=== PATIENT | female | born 1935 | race Caucasian/White ===

== ENCOUNTER 2020-08-15 05:25 | Inpatient (IN) | payer OTHER ==
[~2020-08-15] VITALS: Ht 152.4 cm; Wt 43.1 kg
[2020-08-15 05:25] VITALS: BP 118/57
[2020-08-15] MEDS ORDERED: NACL 0.9% 500 ML IV ONE (05:30)
[2020-08-15] MEDS ORDERED: METO50TE2 PO (05:47)
[2020-08-15] MEDS ORDERED: HYDR-133 PO (05:47)
[2020-08-15] MEDS ORDERED: ACET-2619 PO (05:47)
[2020-08-15] MEDS ORDERED: DOCU-299 PO (05:47)
[2020-08-15] MEDS ORDERED: MULT-2112 PO (05:47)
[2020-08-15] MEDS ORDERED: ALEN70TA74 PO (05:47)
[2020-08-15] MEDS ORDERED: [UNRECOGNIZED DRUG - CODE] PO (05:47)
[2020-08-15] MEDS ORDERED: PYRI-218 PO (05:47)
[2020-08-15] MEDS ORDERED: LACT10SO1 PO (05:47)
[2020-08-15 06:09] LABS: BASOPHILS % (AUTO) 0.4 % (0.0-2.0); EOSINOPHILS % (AUTO) 0.2 % (0.0-4.0); HEMATOCRIT 34.3 % (36-48); HEMOGLOBIN 11.7 g/dL (12.0-16.0); LYMPHOCYTES # (AUTO) 0.4 K/uL (2.5-16.5); LYMPHOCYTES % (AUTO) 3.8 % (20.5-51.1); MEAN CORPUSCULAR HEMOGLOBIN 29 pg (27-31); MEAN CORPUSCULAR HGB CONC 34 g/dL (33-37); MEAN CORPUSCULAR VOLUME 85.8 fL (80-94); MONOCYTES # (AUTO) 0.5 K/uL (0.8-1.0); MONOCYTES % (AUTO) 4.5 % (1.7-9.3); NEUTROPHILS # (AUTO) 9.2 K/uL (1.8-7.7); NEUTROPHILS % (AUTO) 91.1 % (42.2-75.2); PLATELET COUNT (AUTO) 311 K/uL (140-450); RED BLOOD CELL COUNT(AUTO) 3.99 MIL/uL (4.20-5.40); RED CELL DISTRIBUTION WIDTH 14.7 % (11.6-13.7); WHITE BLOOD COUNT (AUTO) 10.1 K/uL (4.8-10.8)
[2020-08-15 06:10] LABS: APPEARANCE,URINE CLOUDY (CLEAR); BILIRUBIN,URINE NEGATIVE (NEGATIVE); BLOOD, URINE 2+ (NEGATIVE); COLOR,URINE YELLOW (YELLOW); LEUKOCYTE ESTERASE ,URINE 1+ (NEGATIVE); UGLUCOSE NEGATIVE (NEGATIVE)
[2020-08-15 06:17] LABS: RBC,URINE 0-5 /HPF (0-5); WBC,URINE 0-5 /HPF (0-5)
[2020-08-15 06:18] LABS: NITRITE, URINE POSITIVE (NEGATIVE)
[2020-08-15] MEDS ORDERED: LEVOFLOXACIN 500 MG/D5W PREMIX 100 ML IV ONE (06:20)
[2020-08-15] MEDS ORDERED: AZITHROMYCIN 1,000 MG in DEXTROSE 5% 500 ML IV ONE (06:20)
[2020-08-15 06:30] LABS: PROTHROMBIN TIME 10.9 secs (10.8-13.4)
[2020-08-15 06:31] LABS: ALBUMIN 2.8 g/dL (3.4-5.0); ANION GAP 9.2 (8-16); ASPARTATE AMINOTRANSFERASE 77 U/L (15-37); CHLORIDE 94 mmol/L (98-107); CREATININE 1.1 mg/dL (0.6-1.3); GLUCOSE 229 mg/dL (74-106); SODIUM SERUM 142 mmol/L (136-145); TOTAL BILIRUBIN 2.1 mg/dL (0.0-1.0); UREA NITROGEN, BLOOD 22 mg/dL (7-18)
[2020-08-15] MEDS ORDERED: AZITHROMYCIN 500 MG INJ VIAL IV ONE (06:33)
[2020-08-15 06:42] LABS: POTASSIUM 1.2 mmol/L (3.5-5.1)
[2020-08-15] MEDS ORDERED: POTASSIUM CHL 40 MEQ/ D5-1/2NS 1,000 ML IV ONE (06:45)
[2020-08-15] MEDS ORDERED: ZOLPIDEM 5 MG TAB PO PRN (08:05)
[2020-08-15] MEDS ORDERED: guaiFENesin DM 200/20 MG-10 ML 10 ML UDC PO PRN (08:05)
[2020-08-15] MEDS ORDERED: DOCUSATE SODIUM 100 MG GELCAP PO PRN (08:05)
[2020-08-15] MEDS ORDERED: ONDANSETRON 4 MG/2 ML VIAL IM/IVP PRN (08:05)
[2020-08-15] MEDS ORDERED: ACETAMINOPHEN 325 MG TAB PO PRN (08:05)
[2020-08-15] MEDS ORDERED: HYDROcodone/APAP 7.5/325 MG 1 TAB PO PRN (08:05)
[2020-08-15] MEDS ORDERED: KCL 20 MEQ/WATER INJ PREMIX 100 ML IV SCH (08:29)
[2020-08-15] MEDS: METOPROLOL SUCCINATE 50 MG TABER PO SCH (09:00)
[2020-08-15] MEDS: PANTOPRAZOLE 40 MG TABEC PO SCH (09:00)
[2020-08-15 09:04] LABS: BARBITURATE, URINE NEGATIVE ng/ml (NEG <=200); BENZODIAZEPINE, URINE NEGATIVE ng/mL (NEG <=200); CANNABINOID, URINE NEGATIVE ng/mL (NEG <=50); COCAINE, URINE NEGATIVE ng/mL (NEG <=300); OPIATE, URINE NEGATIVE ng/mL (NEG <=2000); PHENCYCLIDINE SCREEN,URINE NEGATIVE ng/mL (NEG <=25)
[2020-08-15 09:05] LABS: FREE T4 (FREE THYROXINE) 1.56 ng/dL (0.76-1.46); MAGNESIUM 1.2 mg/dL (1.8-2.4); THYROID STIMULATING HORMONE 1.81 uIU/mL (0.34-3.74)
[2020-08-15] MEDS ORDERED: METOPROLOL 50 MG TAB ONE (09:23)
[2020-08-15] MEDS: lisinopriL 5 MG TAB PO SCH (09:56)
[2020-08-15 10:30] VITALS: BP 101/56
[2020-08-15 12:47] LABS: ANION GAP 8.6 (8-16); CHLORIDE 94 mmol/L (98-107); CREATININE 1.3 mg/dL (0.6-1.3); GLUCOSE 260 mg/dL (74-106); SODIUM SERUM 141 mmol/L (136-145); UREA NITROGEN, BLOOD 21 mg/dL (7-18)
[2020-08-15 13:02] LABS: POTASSIUM 1.6 mmol/L (3.5-5.1)
[2020-08-15] MEDS ORDERED: POTASSIUM CHL 40 MEQ/ D5-1/2NS 1,000 ML IV SCH (14:05)
[2020-08-15] MEDS ORDERED: SPIRONOLACTONE 25 MG TAB PO SCH (14:20)
[2020-08-15] MEDS: SPIRONOLACTONE 50 MG TAB PO SCH ×2 (14:53→20:53)
[2020-08-15] MEDS: POTASSIUM CHLORIDE 40 MEQ, LIDOCAINE MPF 1% 25 MG in NACL 0.9% 250 ML IV PRN (14:53)
[2020-08-15] MEDS: POTASSIUM CHLORIDE 10 MEQ TABER PO SCH ×2 (15:20→20:52)
[2020-08-15 16:00] VITALS: BP 113/57
[2020-08-15] MEDS ORDERED: POTASSIUM CHLORIDE 10 MEQ TABER PO SCH (17:00)
[2020-08-15] MEDS ORDERED: NACL 0.9% 1,000 ML IV SCH (17:00)
[2020-08-15] MEDS: ATORVASTATIN 20 MG TAB PO SCH (18:00)
[2020-08-15] MEDS: MAG SULF 2000 MG/WATER PREMIX 50 ML IV SCH ×2 (18:10→20:55)
[2020-08-15] MEDS ORDERED: MAG SULF 2000 MG/WATER PREMIX 50 ML IV SCH (18:30)
[2020-08-15 20:00] VITALS: BP 120/61
[2020-08-15] MEDS: FUROSEMIDE 20 MG TAB PO SCH (20:53)
[2020-08-15] MEDS: SENNA 8.6 MG TAB PO SCH (20:53)
[2020-08-15] MEDS ORDERED: CRUSHER, PILL MC ONE (20:57)
[2020-08-16] VITALS: BP 106/50
[2020-08-16 04:00] VITALS: BP 134/57
[2020-08-16 07:17] LABS: BASOPHILS % (AUTO) 0.2 % (0.0-2.0); EOSINOPHILS % (AUTO) 0.6 % (0.0-4.0); HEMATOCRIT 29.5 % (36-48); HEMOGLOBIN 10.3 g/dL (12.0-16.0); LYMPHOCYTES # (AUTO) 1.1 K/uL (2.5-16.5); LYMPHOCYTES % (AUTO) 15.2 % (20.5-51.1); MEAN CORPUSCULAR HEMOGLOBIN 30 pg (27-31); MEAN CORPUSCULAR HGB CONC 35 g/dL (33-37); MEAN CORPUSCULAR VOLUME 85.6 fL (80-94); MONOCYTES # (AUTO) 0.6 K/uL (0.8-1.0); MONOCYTES % (AUTO) 8.3 % (1.7-9.3); NEUTROPHILS # (AUTO) 5.4 K/uL (1.8-7.7); NEUTROPHILS % (AUTO) 75.7 % (42.2-75.2); PLATELET COUNT (AUTO) 247 K/uL (140-450); RED BLOOD CELL COUNT(AUTO) 3.45 MIL/uL (4.20-5.40); RED CELL DISTRIBUTION WIDTH 15.3 % (11.6-13.7); WHITE BLOOD COUNT (AUTO) 7.2 K/uL (4.8-10.8)
[2020-08-16 07:39] LABS: ANION GAP 7.1 (8-16); CHLORIDE 102 mmol/L (98-107); CREATININE 0.9 mg/dL (0.6-1.3); GLUCOSE 140 mg/dL (74-106); SODIUM SERUM 149 mmol/L (136-145); UREA NITROGEN, BLOOD 17 mg/dL (7-18)
[2020-08-16 08:00] VITALS: BP 126/60
[2020-08-16 08:07] LABS: T4 (THYROXINE) 10.9 ug/dL (4.5-12.0)
[2020-08-16 08:18] LABS: POTASSIUM 1.7 mmol/L (3.5-5.1)
[2020-08-16 08:19] LABS: CARBON DIOXIDE 41.6 mmol/L (21-32)
[2020-08-16] MEDS: POTASSIUM CHLORIDE 10 MEQ TABER PO SCH ×3 (09:00→17:00)
[2020-08-16] MEDS: SENNA 8.6 MG TAB PO SCH ×2 (09:00→21:00)
[2020-08-16] MEDS: FUROSEMIDE 20 MG TAB PO SCH (09:00)
[2020-08-16] MEDS: METOPROLOL SUCCINATE 50 MG TABER PO SCH (09:00)
[2020-08-16] MEDS: lisinopriL 5 MG TAB PO SCH (09:00)
[2020-08-16] MEDS: PANTOPRAZOLE 40 MG TABEC PO SCH (09:00)
[2020-08-16] MEDS: SPIRONOLACTONE 50 MG TAB PO SCH (09:00)
[2020-08-16] MEDS: POTASSIUM CHLORIDE 40 MEQ, LIDOCAINE MPF 1% 25 MG in NACL 0.9% 250 ML IV PRN (09:14)
[2020-08-16 09:23] LABS: MAGNESIUM 2.6 mg/dL (1.8-2.4); PHOSPHORUS 2.2 mg/dL (2.5-4.9)
[2020-08-16 12:00] VITALS: BP 139/90
[2020-08-16] MEDS ORDERED: POTASSIUM CHL 20 MEQ/NACL 0.9% 1,000 ML IV SCH (13:10)
[2020-08-16] MEDS: POTASSIUM CHL 40 MEQ/ D5-1/2NS 1,000 ML IV SCH (15:45)
[2020-08-16 16:00] VITALS: BP 158/72
[2020-08-16] MEDS ORDERED: POTASSIUM CHLORIDE 40 MEQ, LIDOCAINE MPF 1% 25 MG in NACL 0.9% 250 ML IV SCH (16:00)
[2020-08-16] MEDS: ATORVASTATIN 20 MG TAB PO SCH (17:00)
[2020-08-16 20:00] VITALS: BP 102/69
[2020-08-17] VITALS: BP 108/57
[2020-08-17 04:00] VITALS: BP 108/75
[2020-08-17] MEDS: POTASSIUM CHL 40 MEQ/ D5-1/2NS 1,000 ML IV SCH ×2 (06:03→13:36)
[2020-08-17 08:00] VITALS: BP 133/99
[2020-08-17] MEDS: SENNA 8.6 MG TAB PO SCH ×4 (09:00→21:50)
[2020-08-17] MEDS: METOPROLOL SUCCINATE 50 MG TABER PO SCH ×2 (09:00→09:55)
[2020-08-17] MEDS: lisinopriL 5 MG TAB PO SCH ×2 (09:00→09:55)
[2020-08-17] MEDS ORDERED: PANTOPRAZOLE 40 MG INJ VIAL IVP SCH (09:36)
[2020-08-17 12:00] VITALS: BP 152/84
[2020-08-17 14:41] LABS: BASOPHILS % (AUTO) 0.1 % (0.0-2.0); EOSINOPHILS % (AUTO) 0.1 % (0.0-4.0); HEMATOCRIT 31.7 % (36-48); HEMOGLOBIN 10.6 g/dL (12.0-16.0); LYMPHOCYTES # (AUTO) 0.5 K/uL (2.5-16.5); LYMPHOCYTES % (AUTO) 3.3 % (20.5-51.1); MEAN CORPUSCULAR HEMOGLOBIN 29 pg (27-31); MEAN CORPUSCULAR HGB CONC 33 g/dL (33-37); MEAN CORPUSCULAR VOLUME 87.7 fL (80-94); MONOCYTES # (AUTO) 1.4 K/uL (0.8-1.0); MONOCYTES % (AUTO) 8.6 % (1.7-9.3); NEUTROPHILS # (AUTO) 14.6 K/uL (1.8-7.7); NEUTROPHILS % (AUTO) 87.9 % (42.2-75.2); PLATELET COUNT (AUTO) 367 K/uL (140-450); RED BLOOD CELL COUNT(AUTO) 3.62 MIL/uL (4.20-5.40); RED CELL DISTRIBUTION WIDTH 15.9 % (11.6-13.7); WHITE BLOOD COUNT (AUTO) 16.6 K/uL (4.8-10.8)
[2020-08-17 15:03] LABS: ANION GAP 10.5 (8-16); CARBON DIOXIDE 36.7 mmol/L (21-32); CHLORIDE 104 mmol/L (98-107); CREATININE 0.9 mg/dL (0.6-1.3); GLUCOSE 248 mg/dL (74-106); SODIUM SERUM 149 mmol/L (136-145); UREA NITROGEN, BLOOD 22 mg/dL (7-18)
[2020-08-17 15:06] LABS: MAGNESIUM 2.2 mg/dL (1.8-2.4); PHOSPHORUS 2.8 mg/dL (2.5-4.9)
[2020-08-17 15:11] LABS: POTASSIUM 2.2 mmol/L (3.5-5.1)
[2020-08-17 16:07] VITALS: BP 131/85
[2020-08-17] MEDS ORDERED: POTASSIUM CHLORIDE 40 MEQ, LIDOCAINE MPF 1% 25 MG in NACL 0.9% 250 ML IV SCH (16:30)
[2020-08-17] MEDS: ATORVASTATIN 20 MG TAB PO SCH (17:00)
[2020-08-17 20:00] VITALS: BP 112/68
[2020-08-18] VITALS: BP 123/57
[2020-08-18 04:00] VITALS: BP 129/75
[2020-08-18 06:52] LABS: HEMATOCRIT 32.7 % (36-48); HEMOGLOBIN 10.8 g/dL (12.0-16.0); LYMPHOCYTES % (AUTO) 5.9 % (20.5-51.1); MEAN CORPUSCULAR HEMOGLOBIN 29 pg (27-31); MEAN CORPUSCULAR HGB CONC 33 g/dL (33-37); MEAN CORPUSCULAR VOLUME 88.7 fL (80-94); MONOCYTES # (AUTO) 1.2 K/uL (0.8-1.0); MONOCYTES % (AUTO) 7.4 % (1.7-9.3); NEUTROPHILS # (AUTO) 14.6 K/uL (1.8-7.7); NEUTROPHILS % (AUTO) 86.7 % (42.2-75.2); PLATELET COUNT (AUTO) 303 K/uL (140-450); RED BLOOD CELL COUNT(AUTO) 3.68 MIL/uL (4.20-5.40); RED CELL DISTRIBUTION WIDTH 15.9 % (11.6-13.7); WHITE BLOOD COUNT (AUTO) 16.8 K/uL (4.8-10.8)
[2020-08-18 07:08] LABS: MAGNESIUM 2.3 mg/dL (1.8-2.4); PHOSPHORUS 3.1 mg/dL (2.5-4.9)
[2020-08-18 07:47] LABS: ALBUMIN 2.4 g/dL (3.4-5.0); ANION GAP 13.5 (8-16); ASPARTATE AMINOTRANSFERASE 383 U/L (15-37); CARBON DIOXIDE 32.9 mmol/L (21-32); CHLORIDE 104 mmol/L (98-107); CREATININE 1.2 mg/dL (0.6-1.3); GLUCOSE 282 mg/dL (74-106); POTASSIUM 3.4 mmol/L (3.5-5.1); SODIUM SERUM 147 mmol/L (136-145); TOTAL BILIRUBIN 0.6 mg/dL (0.0-1.0); UREA NITROGEN, BLOOD 29 mg/dL (7-18)
[2020-08-18 08:00] VITALS: BP 138/80
[2020-08-18] MEDS: lisinopriL 5 MG TAB PO SCH ×2 (09:00→10:42)
[2020-08-18] MEDS: METOPROLOL SUCCINATE 50 MG TABER PO SCH ×2 (09:00→10:42)
[2020-08-18] MEDS: SENNA 8.6 MG TAB PO SCH ×3 (09:00→21:00)
[2020-08-18] MEDS: PANTOPRAZOLE 40 MG INJ VIAL IVP SCH (10:41)
[2020-08-18] MEDS: POTASSIUM CHL 40 MEQ/ D5-1/2NS 1,000 ML IV SCH (10:43)
[2020-08-18 12:00] VITALS: BP 135/82
[2020-08-18] MEDS: POTASSIUM CHLORIDE 40 MEQ, LIDOCAINE MPF 1% 25 MG in NACL 0.9% 250 ML IV PRN (15:12)
[2020-08-18 16:00] VITALS: BP 139/85
[2020-08-18] MEDS: ATORVASTATIN 20 MG TAB PO SCH (17:00)
[2020-08-18 20:00] VITALS: BP 145/84
[2020-08-19] VITALS: BP 160/93
[2020-08-19] MEDS: POTASSIUM CHL 40 MEQ/ D5-1/2NS 1,000 ML IV SCH (02:40)
[2020-08-19 04:00] VITALS: BP 128/73
[2020-08-19 07:29] LABS: MAGNESIUM 2.3 mg/dL (1.8-2.4); PHOSPHORUS 2.9 mg/dL (2.5-4.9)
[2020-08-19 07:30] LABS: ALBUMIN 2.4 g/dL (3.4-5.0); ANION GAP 12.4 (8-16); ASPARTATE AMINOTRANSFERASE 215 U/L (15-37); CARBON DIOXIDE 32.5 mmol/L (21-32); CHLORIDE 104 mmol/L (98-107); CREATININE 1.1 mg/dL (0.6-1.3); GLUCOSE 231 mg/dL (74-106); POTASSIUM 4.9 mmol/L (3.5-5.1); SODIUM SERUM 144 mmol/L (136-145); TOTAL BILIRUBIN 0.5 mg/dL (0.0-1.0); UREA NITROGEN, BLOOD 32 mg/dL (7-18)
[2020-08-19 07:32] LABS: BASOPHILS % (AUTO) 0.2 % (0.0-2.0); EOSINOPHILS % (AUTO) 0.1 % (0.0-4.0); HEMATOCRIT 32.7 % (36-48); HEMOGLOBIN 10.7 g/dL (12.0-16.0); LYMPHOCYTES # (AUTO) 0.9 K/uL (2.5-16.5); LYMPHOCYTES % (AUTO) 5.7 % (20.5-51.1); MEAN CORPUSCULAR HEMOGLOBIN 29 pg (27-31); MEAN CORPUSCULAR HGB CONC 33 g/dL (33-37); MEAN CORPUSCULAR VOLUME 89.4 fL (80-94); MONOCYTES # (AUTO) 0.9 K/uL (0.8-1.0); MONOCYTES % (AUTO) 5.3 % (1.7-9.3); NEUTROPHILS # (AUTO) 14.5 K/uL (1.8-7.7); NEUTROPHILS % (AUTO) 88.7 % (42.2-75.2); PLATELET COUNT (AUTO) 294 K/uL (140-450); RED BLOOD CELL COUNT(AUTO) 3.66 MIL/uL (4.20-5.40); RED CELL DISTRIBUTION WIDTH 15.9 % (11.6-13.7); WHITE BLOOD COUNT (AUTO) 16.4 K/uL (4.8-10.8)
[2020-08-19 08:00] VITALS: BP 149/84
[2020-08-19] MEDS: SENNA 8.6 MG TAB PO SCH (09:00)
[2020-08-19] MEDS: PANTOPRAZOLE 40 MG INJ VIAL IVP SCH (09:00)
[2020-08-19] MEDS: METOPROLOL SUCCINATE 50 MG TABER PO SCH (09:00)
[2020-08-19] MEDS: lisinopriL 5 MG TAB PO SCH (09:00)
[2020-08-19] MEDS ORDERED: FUROSEMIDE 20 MG/2 ML VIAL IVP SCH (11:15)
[2020-08-19 12:00] VITALS: BP 152/90
[2020-08-19 14:45] LABS: CREATININE,URINE RANDOM 108 mg/dL (30-125); POTASSIUM,URINE RANDOM 16 mmol/L (12-75)
[2020-08-19] MEDS: DEXT 5% / NACL 0.45% 1,000 ML IV SCH (14:45)
[2020-08-19 14:46] LABS: CHLORIDE,URINE RANDOM 59 mmol/L (110-250)
[2020-08-19 16:00] VITALS: BP 156/94
[2020-08-19] MEDS: ATORVASTATIN 20 MG TAB PO SCH (17:00)
[2020-08-19 20:00] VITALS: BP 149/84
[2020-08-19] MEDS: PIPERACILLIN/TAZOBACTAM 3.375 GM in DEXTROSE 5% 50 ML IV SCH (21:00)
[2020-08-19] MEDS ORDERED: SENNA 8.6 MG TAB PO SCH (21:00)
[2020-08-19] MEDS ORDERED: PIPERACILLIN/TAZOBACTAM 3.375 GM VIAL IV ONE (21:58)
[2020-08-20] MEDS ORDERED: PIPERACILLIN/TAZOBACTAM 3.375 GM VIAL IV ONE (05:00)
[2020-08-20] MEDS: PIPERACILLIN/TAZOBACTAM 3.375 GM in DEXTROSE 5% 50 ML IV SCH ×2 (05:20→13:04)
[2020-08-20 07:07] LABS: HEPATITIS A ANTIBODY IGM Negative (Negative); HEPATITIS B CORE AB TOTAL Negative (Negative); HEPATITIS B SURFACE ANTIBODY Non Reactive (.); HEPATITIS B SURFACE ANTIGEN Negative (Negative)
[2020-08-20 07:19] LABS: BASOPHILS % (AUTO) 0.2 % (0.0-2.0); EOSINOPHILS # (AUTO) 0.1 K/uL (0-0.4); EOSINOPHILS % (AUTO) 0.5 % (0.0-4.0); HEMATOCRIT 30.9 % (36-48); HEMOGLOBIN 10.1 g/dL (12.0-16.0); LYMPHOCYTES # (AUTO) 0.9 K/uL (2.5-16.5); LYMPHOCYTES % (AUTO) 8.2 % (20.5-51.1); MEAN CORPUSCULAR HEMOGLOBIN 29 pg (27-31); MEAN CORPUSCULAR HGB CONC 33 g/dL (33-37); MEAN CORPUSCULAR VOLUME 89.3 fL (80-94); MONOCYTES # (AUTO) 0.7 K/uL (0.8-1.0); MONOCYTES % (AUTO) 6.3 % (1.7-9.3); NEUTROPHILS # (AUTO) 9.6 K/uL (1.8-7.7); NEUTROPHILS % (AUTO) 84.8 % (42.2-75.2); PLATELET COUNT (AUTO) 269 K/uL (140-450); RED BLOOD CELL COUNT(AUTO) 3.47 MIL/uL (4.20-5.40); RED CELL DISTRIBUTION WIDTH 15.6 % (11.6-13.7); WHITE BLOOD COUNT (AUTO) 11.3 K/uL (4.8-10.8)
[2020-08-20 07:23] LABS: ANION GAP 9.3 (8-16); CARBON DIOXIDE 36.5 mmol/L (21-32); CHLORIDE 104 mmol/L (98-107); GLUCOSE 185 mg/dL (74-106); POTASSIUM 3.8 mmol/L (3.5-5.1); SODIUM SERUM 146 mmol/L (136-145); UREA NITROGEN, BLOOD 25 mg/dL (7-18)
[2020-08-20 07:26] LABS: PHOSPHORUS 3.1 mg/dL (2.5-4.9)
[2020-08-20 08:00] VITALS: BP 153/89
[2020-08-20] MEDS: lisinopriL 5 MG TAB PO SCH (09:06)
[2020-08-20] MEDS: METOPROLOL SUCCINATE 50 MG TABER PO SCH (09:06)
[2020-08-20] MEDS: DEXT 5% / NACL 0.45% 1,000 ML IV SCH (09:06)
[2020-08-20 12:00] VITALS: BP 146/87
[2020-08-20] MEDS ORDERED: ZOS3.375PM IV (14:23)
[2020-08-20 16:00] VITALS: BP 141/82
[2020-08-20] MEDS: ATORVASTATIN 20 MG TAB PO SCH (17:21)
== END 2020-08-20 19:25 | DRG 871 ==
LOC: MED 05:25 → MTU 06:56
PROVIDERS: ADMIT Family Medicine; ATTEND Family Medicine
DX: A41.9 Sepsis, unspecified organism (principal); G93.41 Metabolic encephalopathy; I50.43 Acute on chronic combined systolic (congestive) and diastolic (congestive) heart failure; E43 Unspecified severe protein-calorie malnutrition; J96.02 Acute respiratory failure with hypercapnia; J69.0 Pneumonitis due to inhalation of food and vomit; Z68.1 Body mass index [BMI] 19.9 or less, adult; N39.0 Urinary tract infection, site not specified; E87.0 Hyperosmolality and hypernatremia; I24.8 Other forms of acute ischemic heart disease; I42.9 Cardiomyopathy, unspecified; Z66 Do not resuscitate; E87.6 Hypokalemia; B96.20 Unspecified Escherichia coli [E. coli] as the cause of diseases classified elsewhere; D64.9 Anemia, unspecified; E78.2 Mixed hyperlipidemia; E83.39 Other disorders of phosphorus metabolism; E83.42 Hypomagnesemia; F03.90 Unspecified dementia, unspecified severity, without behavioral disturbance, psychotic disturbance, mood disturbance, and anxiety; J45.909 Unspecified asthma, uncomplicated; K80.20 Calculus of gallbladder without cholecystitis without obstruction; Z96.641 Presence of right artificial hip joint; E86.0 Dehydration; Z20.828 Contact with and (suspected) exposure to other viral communicable diseases; T50.2X5A Adverse effect of carbonic-anhydrase inhibitors, benzothiadiazides and other diuretics, initial encounter; Z88.7 Allergy status to serum and vaccine; Z79.899 Other long term (current) drug therapy; Y92.89 Other specified places as the place of occurrence of the external cause
CPT/HCPCS: 36415; 36600; 71045; 74018; 76705; 80048; 80053; 80305; 81001; 82150; 82436; 82570; 82803; 83036; 83605; 83615; 83690; 83735; 83880; 84100; 84133; 84436; 84439; 84443; 84479; 84484; 85025; 85379; 85610; 85730; 86140; 86704; 86706; 86708; 86709; 86803; 87040; 87081; 87086; 87340; 92610; 93005; 96365; 96368; 97161-GP; 99291; C1758; C9113; J0456; J0696; J1644; J1940; J1956; J2001; J2543; J3475; J3480; J7030; J7060; U0003